=== PATIENT | female | born 1995 | race Caucasian/White ===

== ENCOUNTER 2018-03-08 17:42 | Emergency (ER) | payer OTHER ==
[~2018-03-08] VITALS: Ht 160 cm; Wt 64.0 kg
[~2018-03-08 17:42] MED LIST: CEPHALEXIN500 MG PO; INTESTINEX1 CAP PO; KETO10TA2 PO; ORPH100T PO
== END 2018-03-08 18:22 | disposition home or self-care (01) ==
LOC: ER 17:42
DX: H66.92 Otitis media, unspecified, left ear (principal)

== ENCOUNTER 2020-08-26 17:34 | Emergency (ER) | payer OTHER ==
[~2020-08-26] VITALS: Ht 160 cm; Wt 65.8 kg
== END 2020-08-26 23:01 | disposition home or self-care (01) ==
LOC: ER 17:34
DX: R41.3 Other amnesia (principal); G40.89 Other seizures

== ENCOUNTER 2022-01-14 10:23 | Emergency (ER) | payer OTHER ==
[~2022-01-14] VITALS: Ht 160 cm; Wt 86.2 kg
== END 2022-01-14 16:30 | disposition home or self-care (01) ==
LOC: ER 10:23
DX: K80.20 Calculus of gallbladder without cholecystitis without obstruction (principal); R10.9 Unspecified abdominal pain

== ENCOUNTER 2025-02-26 11:49 | Emergency (ER) | payer OTHER ==
[~2025-02-26] VITALS: Ht 160 cm; Wt 86.2 kg
[2025-02-26 13:01] LABS: HEMATOCRIT 40.6 % (36.0-45.00); HEMOGLOBIN 13.9 g/dL (12.0-15.00); MEAN CELL VOLUME 85.6 fL (80.00-100.00); MEAN CORPUSCULAR HEMOGLOBIN 29.2 pg (27.00-32.0); MEAN CORPUSCULAR HGB CONC 34.2 g/dl (32.0-36.0); PLATELET COUNT 353 K/uL (150-450); RED BLOOD COUNT 4.74 M/uL (4.00-6.00); RED CELL DISTRIBUTION WIDTH 13.4 % (11.5-14.5)
== END 2025-02-26 14:53 | disposition home or self-care (01) ==
LOC: ER 11:50
PROVIDERS: Emergency Medicine
DX: N92.6 Irregular menstruation, unspecified (principal)

== ENCOUNTER 2025-06-20 13:33 | Emergency (ER) | payer OTHER ==
[~2025-06-20] VITALS: Ht 160 cm; Wt 86.2 kg
[2025-06-20] MEDS ORDERED: ACETAMINOPHEN 500 MG GEL..CAP PO STA (14:53)
[2025-06-20] MEDS ORDERED: BENZONATATE 100 MG CAPSULE PO STA (14:53)
[2025-06-20 16:24] LABS: BASO % 0.1 % (0.1-1.2); EOS # 0.00 (0.04-0.54); EOS % 0.0 % (0.7-7.0); LYMPH # 1.50 (1.18-3.74); LYMPH % 9.3 % (19.3-53.1); MEAN PLATELET VOLUME 9.90 fl (9.4-12.4); MONO # 1.40 (0.24-0.82); MONO % 8.7 % (4.7-12.5); NEUT # 13.07 (1.56-6.13); NEUT % 81.3 % (34.0-71.1); RED CELL DISTRIBUTION WIDTH 13.2 % (11.6-14.4)
[2025-06-20 17:37] LABS: COVID-19 AG NEGATIVE (NEGATIVE)
[2025-06-20] MEDS ORDERED: GILTUSS HONEY118 ML PO (18:14)
[2025-06-20] MEDS ORDERED: OSEL75CA PO (18:14)
[2025-06-20] MEDS ORDERED: ACETAMINOPHEN500 M1 PO (18:14)
== END 2025-06-20 18:59 | disposition home or self-care (01) ==
LOC: ER 13:33
PROVIDERS: General Practice
DX: J10.1 Influenza due to other identified influenza virus with other respiratory manifestations (principal); Z20.822 Contact with and (suspected) exposure to COVID-19